=== PATIENT | female | born 2000 | race Two or more races ===

== ENCOUNTER 2020-08-30 18:01 | Observation (INO) | payer MEDICAID ==
[~2020-08-30] VITALS: Ht 153.7 cm; Wt 83.0 kg
[2020-08-30] MEDS ORDERED: CALC-1042 PO (20:20)
[2020-08-30] MEDS ORDERED: PREN-176 PO (20:20)
[2020-08-30] MEDS ORDERED: FERR325T6 PO (20:20)
== END 2020-08-30 20:52 | disposition home or self-care (01) ==
LOC: 8 EST LDRP 18:01
PROVIDERS: ADMIT Obstetrics & Gynecology; ATTEND Obstetrics & Gynecology
DX: O62.9 Abnormality of forces of labor, unspecified (principal); Z3A.39 39 weeks gestation of pregnancy
CPT/HCPCS: 59025; 99281; G0378